=== PATIENT | female | born 1995 | race Two or more races ===

== ENCOUNTER 2019-07-26 06:27 | Observation (INO) | payer MEDICAID, OTHER ==
[2019-07-26] MEDS ORDERED: PREN-96 PO (09:31)
== END 2019-07-26 09:30 | disposition home or self-care (01) | DRG 566 ==
LOC: LDRP 06:27
PROVIDERS: ADMIT Specialist; ATTEND Specialist
DX: O62.9 Abnormality of forces of labor, unspecified (principal); O26.893 Other specified pregnancy related conditions, third trimester; N89.8 Other specified noninflammatory disorders of vagina; Z3A.38 38 weeks gestation of pregnancy
CPT/HCPCS: 59025; 81002; G0378

== ENCOUNTER 2021-08-29 22:05 | Inpatient (IN) | payer MEDICAID ==
[~2021-08-29] VITALS: Ht 162.6 cm; Wt 86.2 kg
[~2021-08-29 22:05] MED LIST: PREN-96 PO
[2021-08-29] MEDS ORDERED: DERMOPLAST 60ML BOTTLE TOP PRN (22:45)
[2021-08-29] MEDS ORDERED: PHISODERM TOP SOLN 240ML BTL TOP PRN (22:45)
[2021-08-29] MEDS ORDERED: PENICILLIN G POT 5MIL/D5 50ML 50 ML IV ONE (22:45)
[2021-08-29] MEDS ORDERED: LACTATED RINGER'S 1,000 ML IV SCH (22:45)
[2021-08-29] MEDS ORDERED: LIDOCAINE 2%HCL (LOCAL ANESTH.) INJ 20ML MDV IJ PRN (22:45)
[2021-08-29] MEDS ORDERED: WITCH HAZEL-GLYCERIN PAD TOP PRN (22:45)
[2021-08-29] MEDS ORDERED: BUTORPHANOL TARTRATE 2 MG/1 ML VIAL ONE (22:51)
[2021-08-29 23:17] LABS: Basophils # (auto) 0 10 ^3/uL (0-0.2); Eosinophils # (auto) 0 10 ^3/uL (0-0.8); Eosinophils % (auto) 0.4 % (0.0-7.0); Hemoglobin 10.5 g/dL (12.2-16.2); Neutrophils # (auto) 7.9 10 ^3/uL (1.6-8.6); Nucleated Red Blood Cells % 0.1 %; Red Cell Distribution Width 17.7 % (11.8-14.3)
[2021-08-29 23:19] LABS: Basophils % (auto) 0.4 % (0.0-2.0); Hematocrit 32.4 % (36.0-46.0); Lymphocytes # (auto) 2.2 10 ^3/uL (0.4-5.4); Lymphocytes % (auto) 20.8 % (10.0-50.0); Mean Corpuscular Hemoglobin 24.7 pg (28.0-32.0); Mean Corpuscular Hgb Conc. 32.4 g/dL (32.0-36.0); Mean Corpuscular Volume 76.1 fL (80.0-100.0); Monocytes # (auto) 0.5 10 ^3/uL (0-1.3); Neutrophils % (auto) 73.4 % (37.0-80.0); Red Blood Cells 4.26 10^6/uL (4.0-5.20); White Blood Cell 10.7 10^3/uL (4.4-10.8)
[2021-08-29] MEDS ORDERED: LACT. RINGERS/OXYTOCIN 20UNITS 500 ML IV ONE ×2 (23:30)
[2021-08-29 23:33] LABS: INR 0.94 (0.9-1.15); Partial Thromboplastin Time 25.6 sec (23.6-33.0)
[2021-08-29] MEDS ORDERED: ONDANSETRON ODT 4 MG TAB PO PRN (23:45)
[2021-08-29 23:50] LABS: Albumin 2.5 g/dL (3.4-5.0); Calcium 8.3 mg/dL (8.5-10.1); Potassium 3.6 mmol/L (3.5-5.1)
[2021-08-29 23:52] LABS: Bilirubin, Total 0.3 mg/dL (0.2-1.0)
[2021-08-30] MEDS ORDERED: PENICILLIN G POTASSIUM 2,500,000 UNITS in D5W 5% 50 ML IV SCH (02:45)
[2021-08-30] MEDS: IBUPROFEN 600 MG TAB PO SCH ×4 (02:59→18:00)
[2021-08-30 03:00] VITALS: BP 98/53
[2021-08-30 07:30] VITALS: BP 95/53
[2021-08-30 11:20] VITALS: BP 118/54
[2021-08-30 15:30] VITALS: BP 102/52
[2021-08-30 16:31] LABS: Amphetamine Screen, Urine NEGATIVE (NEGATIVE); Barbiturate Scree,Urine NEGATIVE (NEGATIVE); Benzodiazephine Screen, Urine NEGATIVE (NEGATIVE); Cannabinoid Screen, Urine NEGATIVE (NEGATIVE); Cocaine Screen, Urine NEGATIVE (NEGATIVE); Opiate Scree,Urine NEGATIVE (NEGATIVE); Phencyclidine Screen, Urine NEGATIVE (NEGATIVE)
[2021-08-30 19:16] VITALS: BP 91/51
[2021-08-30] MEDS ORDERED: DOCUSATE SOD 100 MG CAP PO SCH (22:00)
[2021-08-30 22:52] VITALS: BP 97/53
[2021-08-31 03:16] VITALS: BP 83/51
[2021-08-31] MEDS: IBUPROFEN 600 MG TAB PO SCH ×3 (03:29→12:00)
[2021-08-31 07:07] LABS: RPR Non Reactive (Non Reactive)
[2021-08-31 07:28] VITALS: BP 95/51
[2021-08-31 11:04] VITALS: BP 101/50
[2021-08-31 12:53] LABS: Urine Bacteria NONE SEEN /hpf (None Seen); Urine Blood 3+ /uL (Negative); Urine Specific Gravity 1.011 (1.001-1.035); Urine WBC 150 /hpf (0 - 5)
== END 2021-08-31 14:35 | disposition home or self-care (01) | DRG 560 ==
LOC: LDRP 22:05 → OBSVTOIN 22:25 → LDRP 23:58
PROVIDERS: ADMIT Obstetrics & Gynecology Obstetrics; ATTEND Obstetrics & Gynecology Obstetrics
PROC: 10E0XZZ Delivery of Products of Conception, External Approach (ICD-10-PCS; principal; 2021-08-29)
PROC: 0UQMXZZ Repair Vulva, External Approach (ICD-10-PCS; 2021-08-29)
DX: O99.824 Streptococcus B carrier state complicating childbirth (principal); Z37.0 Single live birth; O71.82 Other specified trauma to perineum and vulva; Z20.822 Contact with and (suspected) exposure to COVID-19; Z3A.38 38 weeks gestation of pregnancy
CPT/HCPCS: 36415; 59025; 59409; 80053; 80307; 81001; 85025; 85610; 85730; 86592; 86850; 86900; 86901; 87426; 94760; 96360; 96361; 96365; 96366; 96374; G0378; J2540; J2590; J7060

== ENCOUNTER → 2022-11-09 | Outpatient (CLI) | payer MEDICAID ==
[2022-11-09 11:36] LABS: Basophils # (auto) 0 10 ^3/uL (0-0.2); Lymphocytes # (auto) 1.8 10 ^3/uL (0.4-5.4); Monocytes # (auto) 0.4 10 ^3/uL (0-1.3)
[2022-11-09 11:39] LABS: Basophils % (auto) 0.5 % (0.0-2.0); Eosinophils # (auto) 0 10 ^3/uL (0-0.8); Eosinophils % (auto) 0.7 % (0.0-7.0); Hemoglobin 11.4 g/dL (12.2-16.2); Lymphocytes % (auto) 24.4 % (10.0-50.0); Mean Corpuscular Hemoglobin 26.8 pg (28.0-32.0); Mean Corpuscular Hgb Conc. 33.5 g/dL (32.0-36.0); Monocytes % (auto) 5.5 % (0.0-12.0); Neutrophils # (auto) 5.1 10 ^3/uL (1.6-8.6); Neutrophils % (auto) 68.9 % (37.0-80.0); Red Blood Cells 4.24 10^6/uL (4.0-5.20); Red Cell Distribution Width 15.5 % (11.8-14.3); White Blood Cell 7.4 10^3/uL (4.4-10.8)
[2022-11-09 12:14] LABS: Alcohol, Urine < 3.0 mg/dL (0-10); Amphetamine Screen, Urine NEGATIVE (NEGATIVE); Barbiturate Scree,Urine NEGATIVE (NEGATIVE); Benzodiazephine Screen, Urine NEGATIVE (NEGATIVE); Cannabinoid Screen, Urine NEGATIVE (NEGATIVE); Cocaine Screen, Urine NEGATIVE (NEGATIVE); Opiate Scree,Urine NEGATIVE (NEGATIVE); Phencyclidine Screen, Urine NEGATIVE (NEGATIVE)
[2022-11-10 08:06] LABS: RPR Non Reactive (Non Reactive)
== END | disposition home or self-care (01) ==
LOC: LAB 10:41
PROVIDERS: ATTEND Obstetrics & Gynecology
DX: Z34.80 Encounter for supervision of other normal pregnancy, unspecified trimester (principal); Z31.430 Encounter of female for testing for genetic disease carrier status for procreative management; N39.0 Urinary tract infection, site not specified; Z36.0 Encounter for antenatal screening for chromosomal anomalies; Z3A.00 Weeks of gestation of pregnancy not specified
CPT/HCPCS: 36415; 80307; 83036; 84112; 84144; 84702; 85025; 86592; 86703; 86762; 86850; 86900; 86901; 87086; 87340

== ENCOUNTER 2023-06-09 08:02 | Inpatient (IN) | payer MEDICAID ==
[~2023-06-09] VITALS: Ht 162.6 cm; Wt 90.7 kg
[2023-06-09] MEDS ORDERED: BUTORPHANOL TARTRATE 2 MG/1 ML VIAL IV PRN ×2 (08:45)
[2023-06-09] MEDS ORDERED: LACTATED RINGER'S 1,000 ML IV SCH (08:45)
[2023-06-09] MEDS ORDERED: PROMETHAZINE HCL 25 MG/ML 1ML IV PRN (08:45)
[2023-06-09] MEDS ORDERED: DERMOPLAST 60ML BOTTLE TOP PRN (08:45)
[2023-06-09] MEDS ORDERED: miSOPROStol 100 mcg TAB SL PRN (08:45)
[2023-06-09] MEDS ORDERED: LIDOCAINE 2%HCL (LOCAL ANESTH.) INJ 20ML MDV IJ PRN (08:45)
[2023-06-09] MEDS ORDERED: PHISODERM TOP SOLN 240ML BTL TOP PRN (08:45)
[2023-06-09] MEDS ORDERED: WITCH HAZEL-GLYCERIN PAD TOP PRN (08:45)
[2023-06-09] MEDS ORDERED: miSOPROStol 100 mcg TAB PR PRN (08:45)
[2023-06-09] MEDS ORDERED: METHYLERGONOVINE MALEATE 0.2 MG/ML AMP IM PRN (08:45)
[2023-06-09] MEDS ORDERED: LACT. RINGERS/OXYTOCIN 20UNITS 500 ML IV ONE ×2 (08:45→09:15)
[2023-06-09] MEDS ORDERED: IBUPROFEN 600 MG TAB PO PRN (10:15)
[2023-06-09] MEDS ORDERED: ONDANSETRON ODT 4 MG TAB PO PRN (10:15)
[2023-06-09] MEDS ORDERED: ACETAMINOPHEN 325 MG TAB PO PRN (10:15)
[2023-06-09 10:35] LABS: Eosinophils # (auto) 0 10 ^3/uL (0-0.8); Mean Corpuscular Volume 71.4 fL (80.0-100.0); Monocytes # (auto) 0.4 10 ^3/uL (0-1.3)
[2023-06-09 10:36] LABS: Basophils # (auto) 0.1 10 ^3/uL (0-0.2); Basophils % (auto) 0.6 % (0.0-2.0); Hematocrit 30.7 % (36.0-46.0); Hemoglobin 9.5 g/dL (12.2-16.2); Lymphocytes # (auto) 0.8 10 ^3/uL (0.4-5.4); Mean Corpuscular Hemoglobin 22.2 pg (28.0-32.0); Mean Corpuscular Hgb Conc. 31.1 g/dL (32.0-36.0); Monocytes % (auto) 3.2 % (0.0-12.0); Neutrophils # (auto) 10.3 10 ^3/uL (1.6-8.6); Neutrophils % (auto) 89.2 % (37.0-80.0); White Blood Cell 11.5 10^3/uL (4.4-10.8)
[2023-06-09 10:49] LABS: INR 0.93 (0.9-1.15); Partial Thromboplastin Time 25.6 SEC (24.5-34.5)
[2023-06-09 10:52] LABS: Urine Bacteria NONE SEEN /hpf (None Seen); Urine Blood 3+ /uL (Negative); Urine Mucus FEW (None Seen); Urine Specific Gravity 1.018 (1.001-1.035); Urine WBC 11 /hpf (0 - 5)
[2023-06-09 10:54] LABS: Alcohol, Urine < 3.0 mg/dL (0-10); Amphetamine Screen, Urine NEGATIVE (NEGATIVE); Barbiturate Scree,Urine NEGATIVE (NEGATIVE); Benzodiazephine Screen, Urine NEGATIVE (NEGATIVE); Cannabinoid Screen, Urine NEGATIVE (NEGATIVE); Cocaine Screen, Urine NEGATIVE (NEGATIVE); Opiate Scree,Urine NEGATIVE (NEGATIVE); Phencyclidine Screen, Urine NEGATIVE (NEGATIVE)
[2023-06-09 10:57] LABS: Albumin 2.5 g/dL (3.4-5.0); Calcium 8.5 mg/dL (8.5-10.1); Potassium 3.6 mmol/L (3.5-5.1)
[2023-06-09 11:01] LABS: Bilirubin, Total 0.4 mg/dL (0.2-1.0); Total Protein 6.7 g/dL (6.4-8.2)
[2023-06-09 15:00] VITALS: BP 93/61; PULSE 78; RESP 16; TEMP 98.3; O2SAT 100
[2023-06-09] MEDS: FERROUS SULFATE 325mg EC TAB PO SCH (17:30)
[2023-06-09 18:30] VITALS: BP 88/55; PULSE 64; RESP 18; TEMP 98.1; O2SAT 98
[2023-06-09] MEDS ORDERED: DOCUSATE SOD 100 MG CAP PO SCH (22:00)
[2023-06-09 23:08] VITALS: BP 99/56; PULSE 62; RESP 16; TEMP 97.7; O2SAT 96
[2023-06-10 03:20] VITALS: BP 93/57; PULSE 66; RESP 16; TEMP 97.7; O2SAT 98
[2023-06-10 06:54] VITALS: BP 84/57; PULSE 63; RESP 14; TEMP 98.2; O2SAT 100
[2023-06-10] MEDS: FERROUS SULFATE 325mg EC TAB PO SCH (07:40)
[2023-06-10] MEDS ORDERED: TETANUS-DIPTH-ACEL PERTUSSIS 0.5ML SYR Tdap IM ONE (07:45)
[2023-06-10 11:00] VITALS: BP 108/69; PULSE 89; RESP 16; TEMP 98; O2SAT 97
[2023-06-10 11:21] VITALS: BP 108/69; PULSE 89; RESP 16; TEMP 98; O2SAT 97
[2023-06-12 05:07] LABS: RPR Non Reactive (Non Reactive)
== END 2023-06-10 11:21 | disposition home or self-care (01) | DRG 560 ==
LOC: OBSVTOIN 08:02 → NUR 08:02 → LDRP 08:43
PROVIDERS: ADMIT Obstetrics & Gynecology; ATTEND Obstetrics & Gynecology
PROC: 10E0XZZ Delivery of Products of Conception, External Approach (ICD-10-PCS; principal; 2023-06-09)
PROC: 0HQ9XZZ Repair Perineum Skin, External Approach (ICD-10-PCS; 2023-06-09)
DX: O70.0 First degree perineal laceration during delivery (principal); Z37.0 Single live birth; Z28.21 Immunization not carried out because of patient refusal; Z3A.38 38 weeks gestation of pregnancy
CPT/HCPCS: 36415; 59025; 59409; 80053; 80307; 81001; 81002; 85025; 85610; 85730; 86592; 86850; 86900; 86901; 90715; 94760; 96365; 96366; G0378; J2590

== ENCOUNTER 2025-07-05 13:44 | Emergency (ER) | payer MEDICAID ==
[~2025-07-05] VITALS: Ht 162.6 cm; Wt 86.4 kg
--- NOTE | 2025-07-05 14:51 | ED.PDOC ---
DOOR PULLER HPI Comments 29 y.o female who is 7 weeks gestation, presents to the ED for a chief complaint of lower back and abdominal pain that started this morning. Patient reports taking Tylenol extra strength but had no pain relief. Patient now states pain is radiating up to her right sided abdomen. Upon giving a UA test at the ED, patient noted bright red blood in her urine cup. Patient denies any dysuria, fever, chills, diarrhea, did have one episode of vomiting but no morning sickness or hematemesis noted. Patient has a history of a subchorionic hemorrhage diagnosed one week ago by OB via US performed. hx of with no complications or abortions. Chief Complaint: Abdominal Pain Time Seen by MD: 14:29 Reviewed Notes: Nurses Notes, Medications, Allergies Allergies: Coded Allergies: NO KNOWN ALLERGIES (Unverified , 07/26/19) Home Meds Reported Medications Vit W/ Ferrous Fumara ( One Daily) Daily Tab, 1 TAB PO DAILY, #90 TAB 3 Refills 07/26/19 Information Source: Patient Mode of Arrival: Ambulatory Timing: Hours Severity: Moderate Bleeding Quality: Bright Red Vaginal Mass: None Onset Of Mass/Bleeding: Spontaneous Sexual Activity: Last Consensual [place]: Unknown History of: Current Associated Signs and Symptoms: Abdominal Pain, Hematuria Past Medical History PAST MEDICAL HISTORY: Denies Surgical History: Denies all surgeries EQUIPMENT OPERATOR WAGE HAND History: No Pertinent EQUIPMENT OPERATOR WAGE HAND History 4 Para 3 Family History Family History: Reviewed,noncontributory to illness Social History Smoker: Non-Smoker Alcohol: Denies ETOH Use Drugs: Denies Drug Use Constitutional: denies: chills, diaphoresis, fatigue, fever, malaise, sweats, weakness, others EENTM: denies: blurred vision, double vision, ear bleeding, ear discharge, ear drainage, ear pain, ear ringing, eye pain, eye redness, hearing loss, mouth pain, mouth swelling, nasal discharge, nose bleeding, nose congestion, nose pain, photophobia, tearing, throat pain, throat swelling, voice changes, others Respiratory: denies: cough, hemoptysis, orthopnea, SOB at rest, shortness of breath, SOB with excertion, stridor, wheezing, others Cardiovascular: denies: chest pain, dizzy spells, diaphoresis, Dyspnea on exertion, edema, irregular heart beat, left arm pain, lightheadedness, palpitations, PND, syncope, others Gastrointestinal: reports: abdominal pain; denies: abdomen distended, blood streaked bowels, constipated, diarrhea, dysphagia, difficulty swallowing, hematemesis, melena, nausea, poor appetite, poor fluid intake, rectal bleeding, rectal pain, vomiting, others Genitourinary: reports: hematuria, ; denies: abnormal vagina bleeding, burning, dyspareunia, dysuria, flank pain, frequency, incontinence, pain, vagina discharge, urgency, others Neurological: denies: dizziness, fainting, headache, left sided numbness, left sided weakness, numbness, paresthesia, pre-existing deficit, right sided numbness, right sided weakness, seizure, speech problems, tingling, tremors, weakness, others Musculoskeletal: reports: back pain; denies: gout, joint pain, joint swelling, muscle pain, muscle stiffness, neck pain, others Integumetry: denies: bruises, change in color, change in hair/nails, dryness, laceration, lesions, lumps, rash, wounds, others Allergic/Immunocompromised: denies: Difficulty Healing, Frequent Infections, Hives, Itching, others Hematologic/Lymphatic: denies: anemia, blood clots, easy bleeding, easy bruising, swollen glands, others Endocrine: denies: excessive hunger, excessive sweating, excessive thirst, excessive urination, flushing, intolerance to cold, intolerance to heat, unexplained weight gain, unexplained weight loss, others Psychiatric: denies: anxiety, bipolar disorder, depression, hopeless, panic d isorder, schizophrenia, sleepless, suicidal, others All Other Systems: Reviewed and Negative Physical Exam General Appearance: No Apparent Distress, Normal HEENT: Normal ENT Inspection, Pharynx Normal, TMs Normal Neck: Full Range of Motion, Non-Tender, Normal, Normal Inspection Respiratory: Chest Non-Tender, Lungs Clear, No Accessory Muscle Use, No Respiratory Distress, Normal Breath Sounds Cardiovascular: No Edema, No JVD, No Murmur, No Gallop, Normal Peripheral Pulses, Regular Rate/Rhythm Breast Exam: Deferred Gastrointestinal: No Organomegaly, Non Tender, No Pulsatile Mass, Normal Bowel Sounds, Soft Genitalia: Deferred Pelvic: Deferred Rectal: Deferred Extremities: No calf tenderness, Normal capillary refill, Normal inspection, Normal range of motion, Non-tender, No pedal edema Musculoskeletal : Apperance: Normal Neurologic: Alert, tension machine operator II-XII nml as Tested, No Motor Deficits, Normal Affect, Normal Mood, No Sensory Deficits Cerebellar Function: Normal Reflexes: Normal Skin: Dry, Normal Color, Warm Lymphatic: No Adenopathy Was a procedure done? Was a procedure done?: No Differential Diagnosis (EQUIPMENT OPERATOR WAGE HAND) Vaginal Bleeding: - Complete, - Incomplete, - Inevitable, - Missed, Ectopic , UTI X-Ray, Labs, Meds, VS Vital Signs Date Time Temp Pulse Resp B/P (MAP) Pulse Ox O2 Delivery O2 Flow Rate FiO2 07/05/25 13:45 98.1 88 18 100/45 97 98.1 Lab Test 07/05/25 14:57 07/05/25 00:00 Range/Units White Blood Count 8.8 4.4-10.8 10^3/uL Red Blood Count 4.48 4.0-5.20 10^6/uL Hemoglobin 12.6 12.2-16.2 g/dL Hematocrit 38.5 36.0-46.0 % Mean Corpuscular Volume 86.1 80.0-100.0 fL Mean Corpuscular Hemoglobin 28.2 28.0-32.0 pg Mean Corpuscular Hemoglobin Concent 32.7 32.0-36.0 g/dL Red Cell Distribution Width 15.1 H 11.8-14.3 % Platelet Count 230 140-450 10^3/uL Mean Platelet Volume 9.3 6.9-10.8 fL Neutrophils (%) (Auto) 77.8 37.0-80.0 % Lymphocytes (%) (Auto) 16.5 10.0-50.0 % Monocytes (%) (Auto) 5.0 0.0-12.0 % Eosinophils (%) (Auto) 0.3 0.0-7.0 % Basophils (%) (Auto) 0.4 0.0-2.0 % Neutrophils # (Auto) 6.8 1.6-8.6 10 ^3/uL Lymphocytes # (Auto) 1.4 0.4-5.4 10 ^3/uL Monocytes # (Auto) 0.4 0-1.3 10 ^3/uL Eosinophils # (Auto) 0 0-0.8 10 ^3/uL Basophils # (Auto) 0 0-0.2 10 ^3/uL Nucleated Red Blood Cells 0.0 % Sodium Level 138 136-145 mmol/L Potassium Level 3.7 3.5-5.1 mmol/L Chloride Level 107 98-107 mmol/L Carbon Dioxide Level 23 20-31 mmol/L Anion Gap 8 5-15 Blood Urea Nitrogen 7 L 9-23 mg/dL Creatinine 0.61 0.550-1.02 mg/dL Glomerular Filtration Rate Calc 123 >90 mL/min BUN/Creatinine Ratio 11.5 10.0-20.0 Serum Glucose 107 H 74-106 mg/dL Calcium Level 9.5 8.7-10.4 mg/dL Beta HCG, Quantitative 12874.2 H 1.5-4.2 mIU/mL Urine Color Brown H Yellow Urine Clarity Ex.turbid Clear Urine pH 6.0 5.0-9.0 Urine Specific [place] 1.038 H 1.001-1.035 Urine Protein 1+ H Negative Urine Ketones 2+ H Negative Urine Blood 3+ H Negative /uL Urine Nitrite Negative Negative Urine Bilirubin Negative Negative Urine Urobilinogen Normal Negative mg/dL Urine Leukocyte Esterase Trace Negative /uL Urine RBC 7856 0 - 4 /hpf Urine Microscopic WBC 36 H 0-5 /HPF Urine Squamous Epithelial Cells Few <5 /hpf Urine Bacteria None seen None Seen /hpf Urine Mucus Few None Seen Urine Glucose Normal Normal mg/dL X-Ray, Labs, Meds, VS Comment Imaging was reviewed by this provider, there is no obvious pathological or acute disease process. Pending radiology review Labs were reviewed by this provider, no abnormalities Vital signs reviewed by this provider, clinically stable Time of 1ST Reevaluation: 14:51 Reevaluation 1ST: Unchanged Patient Education/Counseling: Diagnosis, Treatment, Prognosis, Need For Follow Up (Follow up with OBGYN next available appointment. Return to the emergency department in two days if symptoms continue.) Family Education/Counseling: No Family Present Departure 1 Departure Time of Disposition: 17:22 Impression: Primary Impression: Subchorionic hemorrhage in first trimester Disposition: 01 HOME / SELF CARE / HOMELESS Condition: Stable Discharged With: Self Critical Care Note Critical Care Time?: No Stability Stability form required: No I personally scribed for GRACIA DO ([facility]) on 07/05/25 at 14:51. Electronically submitted by Regina Randolph ([facility]). GRACIA DO [facility] Jul 05, 2025 14:51
[2025-07-05 15:10] LABS: Hematocrit 38.5 % (36.0-46.0); Hemoglobin 12.6 g/dL (12.2-16.2); Mean Corpuscular Hemoglobin 28.2 pg (28.0-32.0); Mean Corpuscular Volume 86.1 fL (80.0-100.0); Nucleated Red Blood Cells % 0.0 %
[2025-07-05 15:16] LABS: Potassium 3.7 mmol/L (3.5-5.1); Sodium 138 mmol/L (136-145)
[2025-07-05 15:17] LABS: Anion Gap 8 (5-15); Calcium 9.5 mg/dL (8.7-10.4); Carbon Dioxide 23 mmol/L (20-31)
[2025-07-05 15:21] LABS: Chloride 107 mmol/L (98-107)
[2025-07-05 15:22] LABS: BUN/Creatinine Ratio 11.5 (10.0-20.0)
[2025-07-05 15:34] LABS: Blood Urea Nitrogen 7 mg/dL (9-23); Glucose 107 mg/dL (74-106)
[2025-07-05 15:59] LABS: Urine Protein, UAD 1+ (Negative)
--- NOTE | 2025-07-05 16:58 | DVH ---
CLINICAL HISTORY: Abdominal pain. Spotting. COMPARISON:None TECHNIQUE: Transvaginal and transabdominal grayscale sonographic imaging of the uterus and ovaries wa s performed, assisted by color Doppler technique. Duplex Doppler ultrasound of both ovaries was also performed. Sonographic evaluation of early intrauterine was performed. FINDINGS: The uterus measures 10.6 x 6.2 x 5.9 cm. There is an intrauterine gestational sac with yolk sac and pole identified. [place]-rump length measures 0.95 cm, corresponding to an estimated ges tational age of 7 weeks 0 days. Suspected subchorionic hemorrhage adjacent to the gestational sac keyshawn sures up to 1.9 x 1.5 x 0.7 cm. heart rate measures 145 beats per minute. Neither ovary is visualized. IMPRESSION: 1. Single living intrauterine with estimated gestational age of 7 weeks 0 days based on 1st trimester ultrasound crown-rump length. 2. Small subchorionic hemorrhage.
[2025-07-05 17:38] VITALS: BP 111/59; PULSE 79; RESP 16; TEMP 98.4; O2SAT 96
== END 2025-07-05 17:40 | disposition home or self-care (01) ==
LOC: ER 13:44
DX: O20.8 Other hemorrhage in early pregnancy (principal); Z3A.01 Less than 8 weeks gestation of pregnancy
CPT/HCPCS: 36415; 76801; 76817; 80048; 81001; 84702; 85025

== ENCOUNTER 2025-07-07 02:15 | Emergency (ER) | payer MEDICAID ==
[~2025-07-07] VITALS: Ht 162.6 cm; Wt 85.5 kg
[2025-07-07 04:06] LABS: Urine Protein, UAD 1+ (Negative)
[2025-07-07 04:37] LABS: Hematocrit 38.6 % (36.0-46.0); Hemoglobin 12.9 g/dL (12.2-16.2); Mean Corpuscular Hemoglobin 28.5 pg (28.0-32.0); Mean Corpuscular Volume 85.1 fL (80.0-100.0); Nucleated Red Blood Cells % 0.1 %
[2025-07-07 04:51] LABS: Alanine Aminotransferase 20 U/L (7-40); Albumin 4.5 g/dL (3.2-4.8); Alkaline Phosphatase 52 U/L (46-116); Anion Gap 11 (5-15); BUN/Creatinine Ratio 15.3 (10.0-20.0); Calcium 9.2 mg/dL (8.7-10.4); Carbon Dioxide 23 mmol/L (20-31); Chloride 105 mmol/L (98-107); Glucose 92 mg/dL (74-106); Lipase 26 U/L (12-53); Sodium 139 mmol/L (136-145); Total Protein 7.4 g/dL (5.7-8.2)
[2025-07-07 04:52] LABS: Bilirubin, Total 0.6 mg/dL (0.2-1.0)
[2025-07-07 05:20] LABS: Blood Urea Nitrogen 9 mg/dL (9-23); Potassium 3.5 mmol/L (3.5-5.1)
[2025-07-07 07:00] VITALS: PULSE 70; RESP 14; O2SAT 99
--- NOTE | 2025-07-07 07:23 | ED.PDOC ---
DEPUTY GENERAL COUNSEL HPI Comments 29 y/o F, presents to the ED for CC of abdominal pain. Patient states, she has been experiencing RLQ abdominal pain sudden onset, Sunday (07/05/25). Patient reports, she was seen at [facility] on Sunday (07/05/25) for SS and was told to have a subchronic hemorrhage. Patient relays, that she is currently [id number] ; LMP was on (05/22/25). Patient endorses, that pain has not ceased and c/o current 8/10 RLQ abdominal pain. Patient denies vaginal bleeding, abdominal cramping, nausea, vomiting, or diarrhea. No other symptoms or modifying factors are present at this time. Chief Complaint: Abdominal Pain Time Seen by MD: 06:15 Reviewed Notes: Nurses Notes, Medications, Allergies Allergies: Coded Allergies: NO KNOWN ALLERGIES (Unverified , 07/26/19) Home Meds Active Scripts Cephalexin (KEFLEX CAPSULE) 250 Mg Cp, 500 MG PO QID for 7 Days, #28 BOTTLE Prov:NATHANAEL RAM MD 07/07/25 Reported Medications Vit W/ Ferrous Fumara ( One Daily) Daily Tab, 1 TAB PO DAILY, #90 TAB 3 Refills 07/26/19 Information Source: Patient Mode of Arrival: Ambulatory Timing: Days Prehospital treatment: None Severity: Moderate Vaginal Discharge: None Vaginal Lesions: None Vaginal Mass: None Sexual Activity: Last Consensual [place]: Unknown History of: Current Blood Type: Unknown Associated Signs and Symptoms: Abdominal Pain Past Medical History PAST MEDICAL HISTORY: Denies Surgical History: Denies all surgeries MACHINE COREMAKER History: No Pertinent MACHINE COREMAKER History Family History Family History: Reviewed,noncontributory to illness Social History Smoker: Non-Smoker Alcohol: Denies ETOH Use Drugs: Denies Drug Use Lives In: Home Constitutional: denies: chills, diaphoresis, fatigue, fever, malaise, sweats, weakness, others EENTM: denies: blurred vision, double vision, ear bleeding, ear discharge, ear drainage, ear pain, ear ringing, eye pain, eye redness, hearing loss, mouth pain, mouth swelling, nasal discharge, nose bleeding, nose congestion, nose pain, photophobia, tearing, throat pain, throat swelling, voice changes, others Respiratory: denies: cough, hemoptysis, orthopnea, SOB at rest, shortness of breath, SOB with excertion, stridor, wheezing, others Cardiovascular: denies: chest pain, dizzy spells, diaphoresis, Dyspnea on exertion, edema, irregular heart beat, left arm pain, lightheadedness, palpitations, PND, syncope, others Gastrointestinal: reports: abdominal pain; denies: abdomen distended, blood streaked bowels, constipated, diarrhea, dysphagia, difficulty swallowing, hematemesis, melena, nausea, poor appetite, poor fluid intake, rectal bleeding, rectal pain, vomiting, others Genitourinary: denies: abnormal vagina bleeding, burning, dyspareunia, dysuria, flank pain, frequency, hematuria, incontinence, pain, , vagina discharge, urgency, others Neurological: denies: dizziness, fainting, headache, left sided numbness, left sided weakness, numbness, paresthesia, pre-existing deficit, right sided numbness, right sided weakness, seizure, speech problems, tingling, tremors, weakness, others Musculoskeletal: denies: back pain, gout, joint pain, joint swelling, muscle pain, muscle stiffness, neck pain, others Integumetry: denies: bruises, change in color, change in hair/nails, dryness, laceration, lesions, lumps, rash, wounds, others Allergic/Immunocompromised: denies: Difficulty Healing, Frequent Infections, Hives, Itching, others Hematologic/Lymphatic: denies: anemia, blood clots, easy bleeding, easy bruising, swollen glands, others Endocrine: denies: excessive hunger, excessive sweating, excessive thirst, excessive urination, flushing, intolerance to cold, intolerance to heat, unexplained weight gain, unexplained weight loss, others Psychiatric: denies: anxiety, bipolar disorder, depression, hopeless, panic disorder, schizophrenia, sleepless, suicidal, others All Other Systems: Reviewed and Negative Physical Exam General Appearance: Moderate Distress HEENT: Normal ENT Inspection, Pharynx Normal, TMs Normal Neck: Full Range of Motion, Non-Tender, Normal, Normal Inspection Respiratory: Chest Non-Tender, Lungs Clear, No Accessory Muscle Use, No Re spiratory Distress, Normal Breath Sounds Cardiovascular: No Edema, No JVD, No Murmur, No Gallop, Normal Peripheral Pulses, Regular Rate/Rhythm Breast Exam: Deferred Gastrointestinal: No Organomegaly, Non Tender, No Pulsatile Mass, Normal Bowel Sounds, Soft Genitalia: Deferred Pelvic: Deferred Rectal: Deferred Extremities: No calf tenderness, Normal capillary refill, Normal inspection, Normal range of motion, Non-tender, No pedal edema Musculoskeletal : Apperance: Normal Neurologic: Alert, short piece handler II-XII nml as Tested, No Motor Deficits, Normal Affect, Normal Mood, No Sensory Deficits Cerebellar Function: Normal Reflexes: Normal Skin: Dry, Normal Color, Warm Peripheral Pulses: 3+ Radial (R), 3+ Radial (L) Lymphatic: No Adenopathy Was a procedure done? Was a procedure done?: No Differential Diagnosis (MACHINE COREMAKER) Vaginal Bleeding: - Complete, - Incomplete, - Inevitable, - Missed, - Threatened, Ectopic , Other (subchronic hemorrhage) Mass / Lesion: N/A Vaginal Discharge: N/A X-Ray, Labs, Meds, VS Vital Signs Date Time Temp Pulse Resp B/P (MAP) Pulse Ox O2 Delivery O2 Flow Rate FiO2 07/07/25 08:47 98.5 68 16 99/65 (76) 98.5 07/07/25 07:00 70 14 99 Room Air* 0 21 07/07/25 06:58 98.5 70 14 102/38 (59) 99 98.5 07/07/25 02:22 97.7 78 19 112/60 98 97.7 Lab Test 07/07/25 03:21 07/07/25 03:00 Range/Units White Blood Count 8.3 4.4-10.8 10^3/uL Red Blood Count 4.53 4.0-5.20 10^6/uL Hemoglobin 12.9 12.2-16.2 g/dL Hematocrit 38.6 36.0-46.0 % Mean Corpuscular Volume 85.1 80.0-100.0 fL Mean Corpuscular Hemoglobin 28.5 28.0-32.0 pg Mean Corpuscular Hemoglobin Concent 33.4 32.0-36.0 g/dL Red Cell Distribution Width 14.6 H 11.8-14.3 % Platelet Count 214 140-450 10^3/uL Mean Platelet Volume 9.4 6.9-10.8 fL Neutrophils (%) (Auto) 74.4 37.0-80.0 % Lymphocytes (%) (Auto) 19.1 10.0-50.0 % Monocytes (%) (Auto) 5.7 0.0-12.0 % Eosinophils (%) (Auto) 0.4 0.0-7.0 % Basophils (%) (Auto) 0.4 0.0-2.0 % Neutrophils # (Auto) 6.2 1.6-8.6 10 ^3/uL Lymphocytes # (Auto) 1.6 0.4-5.4 10 ^3/uL Monocytes # (Auto) 0.5 0-1.3 10 ^3/uL Eosinophils # (Auto) 0 0-0.8 10 ^3/uL Basophils # (Auto) 0 0-0.2 10 ^3/uL Nucleated Red Blood Cells 0.1 % Sodium Level 139 136-145 mmol/L Potassium Level 3.5 3.5-5.1 mmol/L Chloride Level 105 98-107 mmol/L Carbon Dioxide Level 23 20-31 mmol/L Anion Gap 11 5-15 Blood Urea Nitrogen 9 9-23 mg/dL Creatinine 0.59 0.550-1.02 mg/dL Glomerular Filtration Rate Calc 123 >90 mL/min BUN/Creatinine Ratio 15.3 10.0-20.0 Serum Glucose 92 74-106 mg/dL Calcium Level 9.2 8.7-10.4 mg/dL Total Bilirubin 0.6 0.2-1.0 mg/dL Aspartate Amino Transferase (AST) 21 13-40 U/L Alanine Aminotransferase (ALT) 20 7-40 U/L Alkaline Phosphatase 52 46-116 U/L Total Protein 7.4 5.7-8.2 g/dL Albumin 4.5 3.2-4.8 g/dL Lipase 26 12-53 U/L Beta HCG, Quantitative 68438.8 H 1.5-4.2 mIU/mL Urine Color Yellow Yellow Urine Clarity Turbid H Clear Urine pH 6.0 5.0-9.0 Urine Specific [place] 1.027 1.001-1.035 Urine Protein 1+ H Negative Urine Ketones 2+ H Negative Urine Blood 3+ H Negative /uL Urine Nitrite Negative Negative Urine Bilirubin Negative Negative Urine Urobilinogen Normal Negative mg/dL Urine Leukocyte Esterase Trace Negative /uL Urine RBC 828 0 - 4 /hpf Urine Microscopic WBC 10 H 0-5 /HPF Urine Squamous Epithelial Cells Few <5 /hpf Urine Bacteria Mod H None Seen /hpf Urine Mucus Few None Seen Urine Glucose Normal Normal mg/dL Current Medications Medications (Trade) Dose Ordered Sig/Thien Route Start Time Stop Time Status Last Admin Cephalexin (Keflex Capsule) 500 mg ONCE ONCE PO 07/07/25 07:30 07/07/25 07:31 DC 07/07/25 08:46 Patient alert. Complaining of abdominal discomfort. Was seen here few days ago for similar symptom for which ultrasound did show normal . Vitals stable. No leg swelling. Answering questions. Urinalysis shows UTI. Ketones. Establish intravenous access. Was given fluids. Was given Keflex. Reviewed her previous visit. Was given prescription of Keflex antibiotic. Explained to the patient. Was told to follow up with her primary care physician. Was told to come back if there is any problem. [place] [address] Ph: [phone] DIAGNOSTIC IMAGING Diagnostic Imaging Report : [id number] Signed PATIENT: JERRY TUCKER ACCT: [id number] UNIT: [id number] : 1995 LOC: ER ROOM / BED: / AGE / SEX: 29 / F ADM STATUS: REG ER SERVICE 2 ORDERING PHYSICIAN: NATHANAEL RAM MD PROCEDURE(s): OB4US - OB ULTRASOUND COMP LESS 14WKS REASON: cramping ORDER NUMBER(s): [id number], ACCESSION NUMBER(s): [id number] OB ULTRASOUND <14 WEEKS: HISTORY: cramping TECHNIQUE: Multiple real-time grayscale sonographic images of the pelvis with duplex Doppler color flow, spectral and M-mode analysis. TRANSDUCERS: Transabdominal and transvaginal COMPARISON: US OB ULTRASOUND COMP LESS 14WKS on DOS: 07/05/25 FINDINGS: The uterus measures 10.1 x 7.8 x 5.6 cm The cervix is not visualized Right ovary measures 2.1 x 2.5 x 2.9 cm with normal Doppler color flow. Left ovary is not visualized IUP single fetus at 7 weeks and 2 days average ultrasound age based on mean crown-rump length of 1.16 cm and gestational sac size of 2.3 cm heart rate detected at 145 beats per minute. Yolk sac is present. Amniotic fluid is subjectively within normal limits Apple-gestational space: Moderate subchorionic hematomas are present measuring 1. 9 cm and 1.7 cm, respectively. Indeterminate possible heterogeneous masslike structure in the right adnexal region measures 7.0 x 7.7 x 6.6 cm. Differential considerations could include prominent bowel loop or possible large hemorrhagic cyst. IMPRESSION: IUP single live fetus 7 weeks and 2 days AUA corresponding to an DECLAN of 02/22/2026. 2 moderate sized adjacent subchorionic hematomas are present measuring 1.9 cm and 1.7 cm, respectively. Indeterminate and nonspecific heterogeneous masslike soft-tissue structure in the right adnexal region measures 7.0 x 7.7 cm. Differential considerations could include large hemorrhagic cyst versus possible prominent bowel loop. Close clinical and sonographic follow-up advised. ATED BY: RED RICHARDSON MD DICTATED DATE/TIME: 07/07/25836 SIGNED BY: RED RICHARDSON MD SIGNED DATE/TIME: 07/07/25836 CC: [place] [address] Ph: [phone] DIAGNOSTIC IMAGING Diagnostic Imaging Report : [id number] Signed PATIENT: JERRY TUCKER ACCT: [id number] UNIT: [id number] : 1995 LOC: ER ROOM / BED: / AGE / SEX: 29 / F ADM STATUS: REG ER SERVICE 3 ORDERING PHYSICIAN: NATHANAEL RAM MD PROCEDURE(s): OBTVG - OB TRANS VAGINAL US REASON: CRAMPING ORDER NUMBER(s): [id number], ACCESSION NUMBER(s): [id number] OB ULTRASOUND <14 WEEKS: HISTORY: cramping TECHNIQUE: Multiple real-time grayscale sonographic images of the pelvis with duplex Doppler color flow, spectral and M-mode analysis. TRANSDUCERS: Transabdominal and transvaginal COMPARISON: US OB ULTRASOUND COMP LESS 14WKS on DOS: 07/05/25 FINDINGS: The uterus measures 10.1 x 7.8 x 5.6 cm The cervix is not visualized Right ovary measures 2.1 x 2.5 x 2.9 cm with normal Doppler color flow. Left ovary is not visualized IUP single fetus at 7 weeks and 2 days average ultrasound age based on mean crown-rump length of 1.16 cm and gestational sac size of 2.3 cm heart rate detected at 145 beats per minute. Yolk sac is present. Amniotic fluid is subjectively within normal limits Apple-gestational space: Moderate subchorionic hematomas are present measuring 1.9 cm and 1.7 cm, respectively. Indeterminate possible heterogeneous masslike structure in the right adnexal region measures 7.0 x 7.7 x 6.6 cm. Differential considerations could include prominent bowel loop or possible large hemorrhagic cyst. IMPRESSION: IUP single live fetus 7 weeks and 2 days AUA corresponding to an DECLAN of 02/22/2026. 2 moderate sized adjacent subchorionic hematomas are present measuring 1.9 cm and 1.7 cm, respectively. Indeterminate and nonspecific heterogeneous masslike soft-tissue structure in the right adnexal region measures 7.0 x 7.7 cm. Differential considerations could include large hemorrhagic cyst versus possible prominent bowel loop. Close clinical and sonographic follow-up advised. ATED BY: RED RICHARDSON MD DICTATED DATE/TIME: 07/07/25836 SIGNED BY: RED RICHARDSON MD SIGNED DATE/TIME: 07/07/25836 CC: Time of 1ST Reevaluation: 06:45 Reevaluation 1ST: Unchanged Patient Education/Counseling: Diagnosis, Treatment Family Education/Counseling: No Family Present Departure 1 Departure Time of Disposition: 08:11 Impression: Primary Impression: Subchorionic hemorrhage in first trimester Additional Impression: Urinary tract infection Qualified Codes: N30.01 - Acute cystitis with hematuria Disposition: 01 HOME / SELF CARE / HOMELESS Condition: Good e-Prescriptions Cephalexin (KEFLEX CAPSULE) 250 Mg Cp 500 MG PO QID for 7 Days, #28 BOTTLE Prov: NATHANAEL RAM MD 07/07/25 Discharged With: Self Critical Care Note Critical Care Time?: No Stability Stability form required: No Heart Score Heart Score: Heart Score Response (Comments) Value History N/A 0 EKG N/A 0 Age N/A 0 Risk Factors N/A 0 Troponin N/A 0 Total 0 I personally scribed for NATHANAEL RAM MD ([email or web address]) on 07/07/25 at 07:23. Electronically submitted by Veronica Tapia ([email or web address]). I personally scribed for NATHANAEL RAM MD ([email or web address]) on 07/07/25 at 08:50. Electronically submitted by Veronica Tapia ([employer]). I personally scribed for NATHANAEL RAM MD ([email or web address]) on 07/07/25 at 08:53. Electronically submitted by Veronica Tapia ([facility] [employer] [facility]). NATHANAEL RAM MD Jul 07, 2025 07:23
[2025-07-07] MEDS ORDERED: CEPH250C PO (08:13)
--- NOTE | 2025-07-07 08:39 | DVH ---
OB ULTRASOUND <14 WEEKS: HISTORY: cramping TECHNIQUE: Multiple real-time grayscale sonographic images of the pelvis with duplex Doppler color f low, spectral and M-mode analysis. TRANSDUCERS: Transabdominal and transvaginal COMPARISON: US OB ULTRASOUND COMP LESS 14WKS on DOS: 07/05/25 FINDINGS: The uterus measures 10.1 x 7.8 x 5.6 cm The cervix is not visualized Right ovary measures 2.1 x 2.5 x 2.9 cm with normal Doppler color flow. Left ovary is not visualized IUP single fetus at 7 weeks and 2 days average ultrasound age based on mean crown-rump length of 1.1 6 cm and gestational sac size of 2.3 cm heart rate detected at 145 beats per minute. Yolk sac is present. Amniotic fluid is subjectively within normal limits Apple-gestational space: Moderate subchorionic hematomas are present measuring 1.9 cm and 1.7 cm, resp ectively. Indeterminate possible heterogeneous masslike structure in the right adnexal region measures 7.0 x 7. 7 x 6.6 cm. Differential considerations could include prominent bowel loop or possible large hemorrha gic cyst. IMPRESSION: IUP single live fetus 7 weeks and 2 days AUA corresponding to an DECLAN of 02/22/2026. 2 moderate sized adjacent subchorionic hematomas are present measuring 1.9 cm and 1.7 cm, respectivel y. Indeterminate and nonspecific heterogeneous masslike soft-tissue structure in the right adnexal regio n measures 7.0 x 7.7 cm. Differential considerations could include large hemorrhagic cyst versus pos sible prominent bowel loop. Close clinical and sonographic follow-up advised.
[2025-07-07] MEDS: SODIUM CHLORIDE 0.9% 1,000 ML IV ONE (08:46)
[2025-07-07] MEDS: CEPHALEXIN 250 MG CAP PO ONE (08:46)
[2025-07-07 11:48] VITALS: BP 120/50; PULSE 62; RESP 16; TEMP 98.4; O2SAT 99
== END 2025-07-07 11:48 | disposition home or self-care (01) ==
LOC: ER 02:15
DX: O20.8 Other hemorrhage in early pregnancy (principal); O21.9 Vomiting of pregnancy, unspecified; O23.41 Unspecified infection of urinary tract in pregnancy, first trimester; N39.0 Urinary tract infection, site not specified; O34.31 Maternal care for cervical incompetence, first trimester; Z3A.01 Less than 8 weeks gestation of pregnancy
CPT/HCPCS: 36415; 76801; 76817; 80053; 81001; 83690; 84702; 85025